=== PATIENT | female | born 1975 | race Caucasian/White ===

== ENCOUNTER 2023-10-15 14:40 | Emergency (ER) | payer OTHER, MEDICAID, SELFPAY ==
[2023-10-15] VITALS (10 sets, daily range): BP systolic 141–162; BP diastolic 76–100; PULSE 58–73; RESP 13–21; TEMP 36.5; O2SAT 96–99; BMI 28.3
--- NOTE | 2023-10-15 14:51 | DI.RAD.S_ITS ---
PROCEDURE: XR CHEST 1V INDICATIONS: chest pain TECHNIQUE: One view of the chest was acquired. COMPARISON: None. FINDINGS: Surgical changes and devices: None. Lungs and pleura: Lungs are clear. No pleural effusions or pneumothorax. Mediastinum: Mediastinal contours appear normal. Heart size is normal. Bones and chest wall: No suspicious bony lesions. Overlying soft tissues appear unremarkable. IMPRESSION: No acute cardiopulmonary abnormality is seen. Dictated by: Cristofer Jamison M.D. on 10/15/2023 at 16:13 Approved by: Cristofer Jamison M.D. on 10/15/2023 at 16:13
[2023-10-15] MEDS: ONDANSETRON 4 MG/2 ML INJ IV (15:07)
[2023-10-15 15:16] LABS: Add Manual Diff / Slide Review NO; Basophils Absolute Auto 0 /uL (0-100); Basophils Percent Auto 0.4 % (0-2); Eosinophils Absolute Auto 0 /uL (0-450); Eosinophils Percent Auto 0.3 % (2-4); Hematocrit 40.1 % (36-46); Hemoglobin 13.7 g/dL (12.0-16.0); Lymphocytes Absolute Auto 1500 /uL (1100-4500); Lymphocytes Percent Auto 22.8 % (25-40); Mean Corpuscular HGB Conc 34.1 % (30-36); Mean Corpuscular Hemoglobin 30.7 PG (26-34); Mean Corpuscular Volume 90.1 fL (80-100); Monocytes Absolute Auto 500 /uL (0-900); Monocytes Percent Auto 8.1 % (3-14); Neutrophils Absolute Auto 4600 /uL (1500-7000); Neutrophils Percent Auto 68.4 % (50-75); Platelet Count 231 X10^3/uL (150-400); Red Blood Cell Count 4.46 X10^6/uL (4.0-5.2); White Blood Cell Count 6.7 X10^3/uL (4.5-11.0)
[2023-10-15 15:20] LABS: INR 1.1 (0.9-1.3); Prothrombin Time 12.2 SECONDS (9.4-12.5)
[2023-10-15 15:23] LABS: PTT Partial Thromboplastin Tim 28 SECONDS (25.1-36.5)
[2023-10-15 15:25] LABS: Alanine Aminotransferase 16 IU/L (<35); Albumin 4.3 g/dL (3.5-5.0); Albumin Globulin Ratio 1.7 (1.0-2.8); Alkaline Phosphatase 47 U/L (38-126); Aspartate Aminotransferase 16 IU/L (14-36); BUN Creatinine Ratio 22.2 (6-22); Bilirubin Total 0.8 mg/dL (0.2-1.3); Blood Urea Nitrogen 14 mg/dL (7-17); Calcium 8.5 mg/dL (8.4-10.2); Carbon Dioxide 29 mmol/L (22-32); Chloride 103 mmol/L (98-107); Creatine Kinase 44 U/L (30-135); Estimated Glomerular Filt Rate > 60 mL/min (>60); Globulin 2.6 g/dL (1.7-4.1); Glucose 104 mg/dL (70-100); HEMOLYSIS < 15 (0-50); Lipase 35 U/L (23-300); Magnesium 1.8 mg/dL (1.6-2.3); Sodium 137 mmol/L (137-145); Total Protein 6.9 g/dL (6.3-8.2)
[2023-10-15 15:36] LABS: Troponin I < 0.012 ng/mL (0.01-0.034)
[2023-10-15] MEDS: KETOROLAC 30 MG/ML VIAL 15 MG IV (15:45)
[2023-10-15] MEDS: LORazepam 2 MG/ML INJ 0.5 MG IV (15:45)
[2023-10-15] MEDS: SODIUM CHLORIDE 0.9% 1,000 ML 1000 ML IV (17:18)
[2023-10-15] MEDS: DEXAMETHASONE 10 MG/ML VIAL 6 MG IV (17:18)
[2023-10-15] MEDS: diphenhydrAMINE 50 MG/ML VIAL 25 MG IV (17:18)
[2023-10-15 17:48] LABS: Troponin I < 0.012 ng/mL (0.01-0.034)
--- NOTE | 2023-10-15 18:07 | ED_ITS ---
HPI - Chest Pain General Chief Complaint: Chest Pain Stated Complaint: Heart palp, chest pain, SOB Time Seen by Provider: 10/15/23 15:38 Source: patient Mode of arrival: Ambulatory Limitations: no limitations History of Present Illness HPI narrative: 48-year-old history of seasonal allergies, migraines who presents with complaint of migraine which she states is fairly typical but she was having some chest tightness and palpitations which she states we will sometimes happen with migraines but this was more prolonged. She felt sort of a fluttering in her chest felt a little bit tight. She had some nausea which progressed over time. Started otherwise very much like a typical migraine. She has not had any syncope no fevers. No shortness of breath. No vomiting. No other GI or urinary symptoms. No neurologic symptoms no numbness tingling weakness difficulty with speech or vision. Patient states she takes Singulair, Jamia, Flomax for possible kidney stone, [place] PRN and Zanaflex. She is allergic to penicillin amoxicillin. She has had neck surgery x2 most recent a year ago, hernia repair, hysterectomy, fallopian surgery and . Patient does not use any tobacco, alcohol or recreational drugs. Family history father did have a CABG in his 50s. No other known cardiac history. Patient is feeling much improved at this time. Related Data Allergies Allergy/AdvReac Type Severity Reaction Status Date / Time amoxicillin Allergy Verified 10/15/23 14:53 latex Allergy Verified 10/15/23 14:53 Penicillins Allergy Verified 10/15/23 14:52 Review of Systems Review of Systems ROS Unobtainable: All systems reviewed & are unremarkable except as noted in HPI and below Patient History Social History Smoking Status: Unknown if ever smoked Smoking Status: Unknown if ever smoked alcohol intake frequency: holidays/special occasions only Substance Use Type: does not use Exam Narrative Exam Narrative: GEN: well nourished, well appearing female, alert and oriented x 3, patient appears to be in mild distress. HEENT: Atraumatic, pupils are equal round reactive to light, extraocular movements are intact, nares are clear, there is no conjunctival pallor. Throat is clear without any exudates, erythema, tonsillar enlargement or uvular deviation, no facial droop. HEART: Regular rate and rhythm without murmur, clicks, rubs. No carotid bruits, pulses are equal in upper and lower extremities LUNGS:Lungs clear to auscultation, no wheezes, rales, crackles, chest moves symmetrically ABD:bowel sounds normal, soft, non-tender, no guarding, rebound, rigidity, no masses noted, no hepatosplenomegaly MSCL: Non-tender, no muscle atrophy, muscles strength 5/5 upper and lower extremities, full range of motion NEURO:CN 2-12 intact, sensation normal Initial Vital Signs Initial Vital Signs: Vital Signs Temperature 97.7 F 10/15/23 14:42 Pulse Rate 60 10/15/23 14:42 Respiratory Rate 14 10/15/23 14:42 Blood Pressure 162/100 H 10/15/23 14:42 Pulse Oximetry 97 10/15/23 14:42 Oxygen Delivery Method Room Air 10/15/23 14:42 Course Orders Ordered: Discontinued Medications Dexamethasone (Dexamethasone 10 Mg/Ml Vial) 6 mg IV NOW ONE Stop: 10/15/23 17:11 Last Admin: 10/15/23 17:18 Dose: 6 mg Documented By: Diphenhydramine HCl (Diphenhydramine 50 Mg/Ml Vial) 25 mg IV NOW ONE Stop: 10/15/23 17:11 Last Admin: 10/15/23 17:18 Dose: 25 mg Documented By: Sodium Chloride (Normal Saline 0.9%) 1,000 mls @ 1,000 mls/hr IV BOLUS ONE Stop: 10/15/23 18:10 Last Infusion: 10/15/23 18:21 Dose: Infused Documented By: Admin: 10/15/23 17:18 Dose: 1,000 mls/hr Documented By: Ketorolac Tromethamine (Ketorolac 30 Mg/Ml Vial) 15 mg IV NOW ONE Stop: 10/15/23 15:40 Last Admin: 10/15/23 15:45 Dose: 15 mg Documented By: Lorazepam (Lorazepam 2 Mg/Ml Inj) 0.5 mg IV NOW ONE Stop: 10/15/23 15:40 Last Admin: 10/15/23 15:45 Dose: 0.5 mg Documented By: Ondansetron HCl (Ondansetron 4 Mg/2 Ml Inj) 4 mg IV NOW PRN PRN Reason: Nausea And Vomiting Last Admin: 10/15/23 15:07 Dose: 4 mg Documented By: SHANON Potassium Chloride (Potassium Chloride 20 Meq Tab) 40 meq PO NOW ONE Stop: 10/15/23 18:20 Last Admin: 10/15/23 18:25 Dose: 40 meq Documented By: Vital Signs Vital signs: Vital Signs - 8 hr 10/15/23 14:42 10/15/23 14:48 10/15/23 15:00 Temperature 97.7 F Pulse Rate 60 73 69 Respiratory Rate 14 15 Blood Pressure 162/100 H Pulse Oximetry 97 97 96 Oxygen Delivery Method Room Air 10/15/23 15:30 10/15/23 15:30 10/15/23 16:00 Temperature Pulse Rate 63 59 L Respiratory Rate 18 15 Blood Pressure 145/94 H Pulse Oximetry 98 97 Oxygen Delivery Method 10/15/23 16:00 10/15/23 16:30 10/15/23 16:30 Temperature Pulse Rate 62 Respiratory Rate 13 Blood Pressure 141/85 H 142/92 H Pulse Oximetry 97 Oxygen Delivery Method 10/15/23 17:00 10/15/23 17:00 10/15/23 17:30 Temperature Pulse Rate 59 L 60 Respiratory Rate 15 15 Blood Pressure 145/89 H Pulse Oximetry 98 99 Oxygen Delivery Method 10/15/23 17:30 Temperature Pulse Rate Respiratory Rate Blood Pressure 159/96 H Pulse Oximetry Oxygen Delivery Method MDM - Chest Pain Lab Data 10/15/23 15:00 10/15/23 15:00 Labs: Lab Results 10/15/23 10/15/23 Range/Units 15:00 17:17 WBC 6.7 (4.5-11.0) X10^3/uL RBC 4.46 (4.0-5.2) X10^6/uL Hgb 13.7 (12.0-16.0) g/dL Hct 40.1 (36-46) % MCV 90.1 (80-100) fL MCH 30.7 (26-34) PG MCHC 34.1 (30-36) % RDW 14.0 (11.6-14.8) % Plt Count 231 (150-400) X10^3/uL Neut % (Auto) 68.4 (50-75) % Lymph % (Auto) 22.8 L (25-40) % [place] % (Auto) 8.1 (3-14) % Eos % (Auto) 0.3 L (2-4) % Baso % (Auto) 0.4 (0-2) % Neut # (Auto) 4600 (1293-2416) /uL Lymph # (Auto) 1500 (2077-4704) /uL [place] # (Auto) 500 (0-900) /uL Eos # (Auto) 0 (0-450) /uL Baso # (Auto) 0 (0-100) /uL PT 12.2 (9.4-12.5) SECONDS INR 1.1 (0.9-1.3) APTT 28 (25.1-36.5) SECONDS Sodium 137 (137-145) mmol/L Potassium 3.0 L (3.4-5.1) mmol/L Chloride 103 (98-107) mmol/L Carbon Dioxide 29 (22-32) mmol/L BUN 14 (7-17) mg/dL Creatinine 0.63 (0.52-1.04) mg/dL Estimated GFR > 60 (>60) mL/min BUN/Creatinine Ratio 22.2 H (6-22) Glucose 104 H (70-100) mg/dL Calcium 8.5 (8.4-10.2) mg/dL Magnesium 1.8 (1.6-2.3) mg/dL Total Bilirubin 0.8 (0.2-1.3) mg/dL AST 16 (14-36) IU/L ALT 16 (<35) IU/L Alkaline Phosphatase 47 (38-126) U/L Total Creatine Kinase 44 (30-135) U/L Troponin I < 0.012 < 0.012 (0.01-0.034) ng/mL Total Protein 6.9 (6.3-8.2) g/dL Albumin 4.3 (3.5-5.0) g/dL Globulin 2.6 (1.7-4.1) g/dL Albumin/Globulin Ratio 1.7 (1.0-2.8) Lipase 35 (23-300) U/L Urine Dip Bedside Urine Glucose Negative Bedside Urine Bilirubin - Negative Bedside Urine Ketone - Negative Urine Specific [place] 1.010 Bedside Urine Occult Blood - Negative Bedside Urine pH 8.0 Bedside Urine Protein - Negative Bedside Urine Urobilinogen - Negative Bedside Urine Nitrite - Negative Bedside Urine Leukocytes - Negative Esterase Imaging Data Chest x-ray: Radiologist's Impression: Close Chest X-Ray (Signed) Cristofer Jamison - 10/15/23 Launch?[address] [address] XRay Report Signed Patient: Susie Emerson MR#: [id number] : 1975 Acct:[id number] Age/Sex: 48 / F Date of Service: 10/15/23 Loc: ED Accession Number: [id number] Procedure: XR chest 1V Ordering Provider: Nohemi Landa D.O. PROCEDURE: XR CHEST 1V INDICATIONS: chest pain TECHNIQUE: One view of the chest was acquired. COMPARISON: None. FINDINGS: Surgical changes and devices: None. Lungs and pleura: Lungs are clear. No pleural effusions or pneumothorax. Mediastinum: Mediastinal contours appear normal. Heart size is normal. Bones and chest wall: No suspicious bony lesions. Overlying soft tissues appear unremarkable. IMPRESSION: No acute cardiopulmonary abnormality is seen. Dictated by: Cristofer Jamison M.D. on 10/15/2023 at 16:13 Approved by: Cristofer Jamison M.D. on 10/15/2023 at 16:13 ECG Data Attestation: I personally reviewed and interpreted this ECG as follows: Interpretation: EKG 1. Sinus rhythm occasional PVCs, rate of 70 MA 166 QRS of 90 QTC 422. EKG 2. Sinus rhythm rate of 60 MA 166 QRS 86 QTC is 422. MDM Narrative Medical decision making narrative: 48-year-old female with history of migraines who states today's was a bit more prolonged also had some tightness and palpitations which he states does sometimes happen with migraines but was lasting for longer than typical. She received medications here in the department and has not had resolution of all her symptoms. Workup includes labs which show a white count of 6.7 hemoglobin of 13 platelets of 231 and INR 1.1, potassium low at 3 was replaced orally, patient had sodium 137 chloride of 103 CO2 29 BUN 14 creatinine 0.63, glucose is 104 LFTs are negative with normal troponin x2. Chest x-ray was negative for acute change. Patient has not had any significant arrhythmias with telemetry or on EKGs. Discussed with patient plan for follow up she does not have primary care currently so was given contact with local primary care is currently accepting. Discussed maybe beneficial she has any persistent palpitations in the future to have a ZIO patch Holter monitor and further workup. Discharge Plan Departure Patient Disposition: Home Clinical Impression: Migraine, Palpitations Activity Restrictions/Additional Instructions: Follow up primary care for any persistent symptoms. Attached is a card that has local primary care offices that is her taking new patients. You may continue your home medications as prescribed. Your potassium was little low today this can sometimes cause extra beats or rhythm abnormalities. None were noted today but you were given oral potassium in the department. Please return for recurrent symptoms, severe headaches, sudden vision changes, new numbness tingling or weakness, difficulty with movement, persistent chest pain, palpitations or racing hard, new swelling in extremities or other new or concerning changes. Stand Alone Forms: Patient Portal/API
[2023-10-15] MEDS: POTASSIUM CHLORIDE 20 MEQ TAB 40 MEQ PO (18:25)
== END 2023-10-15 18:32 | disposition home or self-care (01) ==
PROVIDERS: Emergency Medicine; Emergency Provider Emergency Medicine
DX: G43.909 Migraine, unspecified, not intractable, without status migrainosus (principal); R00.2 Palpitations
CPT/HCPCS: 36415; 71045; 80053; 81003; 82550; 83690; 83735; 84484; 85025; 85610; 85730; 93005; 96374; 96375; 99284; J1100; J1200; J1885; J2060; J2405